=== PATIENT | male | born 1990 | race Caucasian/White ===

== ENCOUNTER 2019-08-28 22:57 | Emergency (ER) | payer BC, OTHER ==
[~2019-08-28] VITALS: Ht 177.8 cm; Wt 99.8 kg
--- NOTE | 2019-08-28 23:10 | NUR ---
PT BIBRA C/O ANXIETY PER EMS PT TOOK METH THIS MORNING, HEARING VOICES, DENIES SI/HI. PT DENIES PAIN AT THIS TIME. ADMITS TO METH USE THIS MORNING. PT AOX4. NAD NOTED. PT ON MONITOR IN BED 14. WILL CONTINUE TO MONITOR.
[2019-08-29 00:29] LABS: BASOPHILS # (AUTO) 0.1 /CMM (0.0-0.2); BASOPHILS % (AUTO) 0.4 % (0.0-2.0); HEMATOCRIT 46 % (39-51); HEMOGLOBIN 15.6 g/dL (13.5-17.5); LYMPHOCYTES # (AUTO) 1.9 /CMM (0.8-4.8); LYMPHOCYTES % (AUTO) 12.6 % (20.0-44.0); MEAN CORPUSCULAR HGB CONC 34 g/dl (31.0-36.0); MEAN CORPUSCULAR VOLUME 89 fL (80-96); MONOCYTES # (AUTO) 0.9 /CMM (0.1-1.30); NEUTROPHILS # (AUTO) 12.2 /CMM (1.8-8.9); PLATELET COUNT (AUTO) 299 /CMM (150-450); RED BLOOD CELL COUNT(AUTO) 5.16 MIL/uL (4.5-6.0); WHITE BLOOD COUNT (AUTO) 15.2 K/uL (4.3-11.0)
[2019-08-29 00:39] LABS: CARBON DIOXIDE 27 mmol/L (21-32); CHLORIDE 99 mmol/L (98-107); CREATININE 1.1 mg/dL (0.6-1.3); GLUCOSE 116 mg/dL (74-106); POTASSIUM 3.7 mmol/L (3.5-5.1); SODIUM SERUM 137 mmol/L (136-145); UREA NITROGEN, BLOOD 12 mg/dL (7-18)
[2019-08-29 01:17] LABS: ALANINE AMINOTRANSFERASE 40 U/L (12-78); ALBUMIN 4.7 g/dL (3.4-5.0); ALCOHOL, BLOOD < 3 mg/dL (0-0); ALKALINE PHOSPHATASE 94 U/L (46-116); ASPARTATE AMINOTRANSFERASE 43 U/L (15-37); BILIRUBIN,DIRECT 0.2 mg/dL (0.0-0.2); BILIRUBIN,TOTAL 0.9 mg/dL (0.2-1.0); TOTAL PROTEIN, SERUM 8.5 g/dL (6.4-8.2)
[2019-08-29 01:19] LABS: ACETAMINOPHEN 0 ug/ml (10-30); SALICYLATE 0.8 mg/dL (2.8-20.0)
--- NOTE | 2019-08-29 01:41 | NUR ---
PT STATING TO BE SI, WITH PLAN TO TAKE HIS MEDICATIONS.
[2019-08-29] MEDS ORDERED: LORAZEPAM 1 MG TABLET ONE (01:53)
[2019-08-29] MEDS ORDERED: LORAZEPAM 1 MG TABLET PO ONE (02:00)
--- NOTE | 2019-08-29 02:20 | NUR ---
PT REFUSING MEDICATION. MD AWARE.
--- NOTE | 2019-08-29 02:30 | NUR ---
URINE COLLECTED AND SENT TO LAB
--- NOTE | 2019-08-29 02:32 | NUR ---
PT REFUSING TO BE PUT PLACED BACK ON THE MONITOR FOR VITAL SIGNS
[2019-08-29 02:35] LABS: APPEARANCE,URINE Clear (CLEAR); BILIRUBIN,URINE Negative (NEGATIVE); BLOOD, URINE Negative Ery/uL (NEGATIVE); COLOR,URINE Yellow (YELLOW); KETONES,URINE 40 (NEGATIVE); LEUKOCYTE ESTERASE ,URINE Negative (NEGATIVE); NITRITE, URINE Negative (NEGATIVE); PH,URINE 6.5 (5.0-8.0); PROTEIN,URINE Negative (NEGATIVE); UGLUCOSE Negative (NEGATIVE); UROBILINOGEN,URINE 0.2 EU/dL (0.2)
[2019-08-29 02:52] LABS: BACTERIA,URINE Few /HPF (None Seen); MUCUS,URINE Moderate /LPF (None Seen); RBC,URINE 0-2 /HPF (0-2); SQUAMOUS EPITHELIAL CELL,UR Rare /HPF (None Seen)
--- NOTE | 2019-08-29 03:00 | NUR ---
PT IS VOLUNTARY TO GO TO [facility], [facility] INTAKE NOTIFIED.
--- NOTE | 2019-08-29 04:23 | NUR ---
PT INFO FAXED TO [facility] INTAKE FOR ADMISSION.
--- NOTE | 2019-08-29 04:25 | NUR ---
[facility] CALLED, STATING INSURANCE NOT ACCEPTED.
--- NOTE | 2019-08-29 05:33 | NUR ---
PT CAME TO NURSING STATION, WANTING TO LEAVE. PT STATES NOT BEING SUICIDAL, STATES THAT HE ONLY SAID THAT SO THAT HE CAN GET PSYCH MEDICATION. PT AXO4.
--- NOTE | 2019-08-29 05:34 | NUR ---
PT CAME BY NURSING STATION AND WANT TO LEAVE. PT VERBALIZES THAT HE IS NO LONGER SUICIDAL AND STATED "I ONLY SAID THAT TO GET MEDICATIONS". MD WAS MADE AWARE. MD CLEARED PT FOR DISCHARGE.
--- NOTE | 2019-08-29 05:39 | NUR ---
Patient discharged to home in stable condition. Written and verbal after care instructions given. Patient verbalizes understanding of instruction. Pt refusing psych resources, stating "I want to leave." Pt denies HI/SI.
[2019-08-29 05:42] VITALS: BP 155/90
== END 2019-08-29 05:43 | disposition home or self-care (01) ==
LOC: ER 23:03
DX: F15.10 Other stimulant abuse, uncomplicated (principal); R44.0 Auditory hallucinations; F32.9 Major depressive disorder, single episode, unspecified; F41.9 Anxiety disorder, unspecified
CPT/HCPCS: 36415; 80048; 80076; 80305; 80307; 80329; 81001; 85025; 99284; G0480; 81000-TC